=== PATIENT | female | born 1970 | race Caucasian/White ===

== ENCOUNTER 2021-05-28 11:36 | Emergency (ER) | payer OTHER ==
[2021-05-28 13:43] LABS: BASOPHIL 0.3 % (0-2); EOSINOPHIL 0.5 % (0-5); HCT 46.5 % (37.0-47.0); HGB 15.6 g/dl (12.5-16.0); MCH 28.6 pg (25.0-31.0); MCHC 33.5 g/dL (32.0-36.0); MCV 85.3 fL (78.0-100.0); MONOCYTE 5.3 % (0-12); MPV 9.7 fL (6.0-9.5); NEUTROPHIL 65.7 % (41-80); NRBC 0; PLT 302 K/uL (150-400); RBC 5.45 M/uL (4.20-5.40); RDW 12.4 % (11.5-14.0); WBC 8.8 K/uL (4.0-10.5)
[2021-05-28 13:59] LABS: BUN/CREAT RATIO (CALC) 11.8 RATIO; CREATININE 0.76 mg/dL (0.51-0.95)
== END 2021-05-28 14:37 | disposition home or self-care (01) ==
LOC: FER 11:36
PROVIDERS: Emergency Medicine
DX: H54.3 Unqualified visual loss, both eyes (principal); F17.210 Nicotine dependence, cigarettes, uncomplicated; Z88.0 Allergy status to penicillin; Z88.2 Allergy status to sulfonamides
CPT/HCPCS: 36415; 70450; 80048; 85025